=== PATIENT | male | born 1960 | race Two or more races ===

== ENCOUNTER 2019-11-30 16:50 | Emergency (ER) | payer MEDICAID ==
[~2019-11-30] VITALS: Ht 177.8 cm; Wt 82.0 kg
[2019-11-30 20:01] LABS: BASOPHILS % 1.3 % (0.0-2.0); EOSINOPHILS % 9.5 % (0.0-5.0); HEMATOCRIT. 42.9 % (42.0-52.0); HEMOGLOBIN. 14.6 g/dL (14.0-18.0); LYMPHOCYTES % 37.9 % (20.0-50.0); MEAN CORPUSCULAR HEMOGLOBIN 30.8 pg (28.0-32.0); MEAN CORPUSCULAR VOLUME 90.7 fL (80.0-94.0); MEAN PLATELET VOLUME 9.5 fl (7.4-10.4); MONOCYTES % 7.3 % (2.0-8.0); PLATELET 242 x1000/uL (130-400); RED BLOOD CELL COUNT 4.73 mill/uL (4.7-6.1); RED CELL DISTRIBUTION WIDTH 12.9 % (11.6-14.6)
[2019-11-30 20:02] LABS: CHLORIDE 107 mEq/L (98-107)
[2019-11-30 20:10] LABS: CREATINE KINASE 141 IU/L (39-308)
[2019-12-01 01:30] VITALS: BP 170/98
== END 2019-12-01 02:32 | disposition short-term general hospital (02) ==
LOC: ER 16:50
DX: M79.605 Pain in left leg (principal); M79.604 Pain in right leg; I10 Essential (primary) hypertension; E11.9 Type 2 diabetes mellitus without complications
CPT/HCPCS: 36415; 80053; 82550; 85025; 93970; 99285